=== PATIENT | female | born 1935 | race Caucasian/White ===

== ENCOUNTER 2017-01-04 11:13 | Emergency (ER) | payer MEDICARE, BC ==
[2017-01-04] MEDS ORDERED: SOLUMEDROL 125 MG/2 ML 125 MG/2 ML PDS IV ONE (11:17)
[2017-01-04] MEDS ORDERED: ALBUTEROL/IPRATROPIUM 1 VIAL SOL INH ONE ×2 (11:17→12:49)
[2017-01-04 11:21] VITALS: TEMP 97.2
[2017-01-04 11:33] LABS: BASOPHILS % (AUTO) 1 % (0-3); EOSINOPHILS % (AUTO) 2 % (0-9); HEMATOCRIT 43 % (35-47); MEAN CORPUSCULAR HGB CONC 35.1 gm/dl (32.0-36.0); MEAN CORPUSCULAR VOLUME 90 fL (81-99); MONOCYTES % (AUTO) 7.9 % (0-12); NEUTROPHILS % (AUTO) 66.9 % (37-80)
[2017-01-04] MEDS ORDERED: ALBUTEROL/IPRATROPIUM 1 VIAL SOL ONE ×2 (11:36→12:49)
[2017-01-04] MEDS ORDERED: METOPROLOL TARTRATE 5 MG/5 ML SOL IV ONE ×3 (11:36→13:32)
[2017-01-04] MEDS ORDERED: SOLUMEDROL 125 MG/2 ML 125 MG/2 ML PDS ONE (11:36)
[2017-01-04] MEDS ORDERED: SODIUM CHLORIDE 0.9% FLUSH 10 ML SOL IV PRN (11:48)
[2017-01-04 11:51] LABS: CALCIUM 9.2 mg/dl (8.5-10.1); GLOM FILT RATE 45 mL/min (>60); POTASSIUM 4.3 mMol/L (3.5-5.1); SODIUM 139 mMol/L (136-145)
[2017-01-04] MEDS ORDERED: FUROSEMIDE 20mg SOL IV ONE (12:03)
[2017-01-04] MEDS ORDERED: FUROSEMIDE 20mg SOL ONE (12:05)
[2017-01-04] MEDS ORDERED: MORPHINE SULFATE 10 MG/ML SOL IV ONE (12:19)
[2017-01-04] MEDS ORDERED: MORPHINE SULFATE 10 MG/ML SOL ONE (12:20)
[2017-01-04 14:07] VITALS: BP 174/92; PULSE 103; RESP 30; O2SAT 93
== END 2017-01-04 14:40 | disposition home or self-care (01) | DRG 189 ==
LOC: ED 11:13
DX: J81.0 Acute pulmonary edema (principal); J44.1 Chronic obstructive pulmonary disease with (acute) exacerbation
CPT/HCPCS: 36415; 71010; 80048; 83880; 84484; 85025; 85610; 99285; J1940; J2270; J2930; J7620

== ENCOUNTER 2017-02-02 20:40 | Inpatient (IN) | payer MEDICARE, BC ==
[2017-02-02] MEDS ORDERED: DILTIAZEM 5 MG/ML SOL IV ONE ×2 (20:51→20:56)
[2017-02-02] MEDS ORDERED: ALBUTEROL/IPRATROPIUM 1 VIAL SOL INH ONE (20:51)
[2017-02-02] MEDS ORDERED: SOLUMEDROL 125 MG/2 ML 125 MG/2 ML PDS IV ONE (20:52)
[2017-02-02] MEDS ORDERED: ALBUTEROL/IPRATROPIUM 1 VIAL SOL ONE (20:56)
[2017-02-02] MEDS ORDERED: SOLUMEDROL 125 MG/2 ML 125 MG/2 ML PDS ONE (20:56)
[2017-02-02 21:03] LABS: BASOPHILS % (AUTO) 1 % (0-3); EOSINOPHILS % (AUTO) 2 % (0-9); HEMATOCRIT 43 % (35-47); MEAN CORPUSCULAR HGB CONC 34.4 gm/dl (32.0-36.0); MEAN CORPUSCULAR VOLUME 89 fL (81-99); MONOCYTES % (AUTO) 9.3 % (0-12); NEUTROPHILS % (AUTO) 69.1 % (37-80)
[2017-02-02 21:13] LABS: CALCIUM 9.4 mg/dl (8.5-10.1); POTASSIUM 4.3 mMol/L (3.5-5.1)
[2017-02-02] MEDS ORDERED: METOPROLOL TARTRATE 50 MG TAB PO ONE (21:18)
[2017-02-02] MEDS ORDERED: METOPROLOL TARTRATE 25 MG TAB ONE (21:21)
[2017-02-02] MEDS ORDERED: LISINOPRIL 20 MG TAB ONE (22:05)
[2017-02-02] MEDS ORDERED: METOPROLOL TARTRATE 50 MG TAB ONE (22:05)
[2017-02-02] MEDS: LISINOPRIL 20 MG TAB PO SCH (22:15)
[2017-02-02] MEDS ORDERED: METOPROLOL TARTRATE 50 MG TAB PO SCH (22:15)
[2017-02-02] MEDS ORDERED: MAGNESIUM CITRATE SOL PO PRN (23:24)
[2017-02-02] MEDS ORDERED: ALBUTEROL HFA 60 PUFF/INHALER INH PRN (23:24)
[2017-02-02] MEDS ORDERED: ACETAMINOPHEN 500 MG 500 MG TAB PO PRN (23:24)
[2017-02-02] MEDS ORDERED: TRAMADOL HYDROCHLORIDE 50 MG TAB PO PRN (23:24)
[2017-02-03] MEDS: SODIUM CHLORIDE 0.9% FLUSH 10 ML SOL IV SCH ×2 (03:56→10:24)
[2017-02-03] MEDS: SOLUMEDROL 125 MG/2 ML 125 MG/2 ML PDS IV SCH ×2 (03:56→10:15)
[2017-02-03 07:18] LABS: BASOPHILS % (AUTO) 0 % (0-3); EOSINOPHILS % (AUTO) 0 % (0-9); HEMATOCRIT 40 % (35-47); MEAN CORPUSCULAR VOLUME 88 fL (81-99); NEUTROPHILS % (AUTO) 92.8 % (37-80)
[2017-02-03 07:43] LABS: CALCIUM 9.3 mg/dl (8.5-10.1); POTASSIUM 4.4 mMol/L (3.5-5.1)
[2017-02-03] MEDS ORDERED: ALBUTEROL/IPRATROPIUM 1 VIAL SOL NEB SCH (09:00)
[2017-02-03] MEDS ORDERED: MULTIVITAMIN2 1 EA TAB PO SCH (09:00)
[2017-02-03] MEDS ORDERED: FISH OIL 500 MG CAP PO SCH (09:00)
[2017-02-03] MEDS ORDERED: CHOLECALCIFEROL 1,000 IU TAB PO SCH (09:00)
[2017-02-03] MEDS ORDERED: Non-Formulary Medication MISC (Budesonide/Formoterol 160/4.5 2 PUFF) IH SCH (09:00)
[2017-02-03] MEDS ORDERED: BIOTIN PO SCH (09:00)
[2017-02-03] MEDS ORDERED: MULTIVITAMIN PO SCH (09:00)
[2017-02-03] MEDS ORDERED: WARFARIN SODIUM 4 MG TAB PO SCH (09:00)
[2017-02-03] MEDS ORDERED: BUDESONIDE/FORMOTEROL 160/4.5 AER INH SCH (09:45)
[2017-02-03] MEDS: LISINOPRIL 20 MG TAB PO SCH ×3 (10:05→12:35)
[2017-02-03 10:23] VITALS: PULSE 80; RESP 18; O2SAT 95
[2017-02-03 10:25] VITALS: BP 182/85; TEMP 97.1
[2017-02-03] MEDS ORDERED: VITAMIN D PO SCH (21:00)
[2017-02-03] MEDS ORDERED: CALCIUM CARBONATE 500 MG TAB PO SCH (21:00)
[2017-02-03] MEDS ORDERED: METOPROLOL SUCCINATE 50 MG ER TAB PO SCH (21:00)
== END 2017-02-03 10:41 | disposition short-term general hospital (02) | DRG 310 ==
LOC: ED 20:40 → ACUTE CARE 23:11
PROVIDERS: ADMIT Emergency Medicine; ATTEND Emergency Medicine
DX: I48.91 Unspecified atrial fibrillation (principal); R06.02 Shortness of breath; I48.2 Chronic atrial fibrillation; R07.9 Chest pain, unspecified; Z79.01 Long term (current) use of anticoagulants
CPT/HCPCS: 36415; 71010; 80048; 83880; 84484; 85025; 85610; 93005; 93012; 94150; 94762; 96374; 96375; 99221; 99285; J2930; J7620

== ENCOUNTER 2017-02-06 23:37 | Observation (INO) | payer MEDICARE, BC ==
[2017-02-06] MEDS ORDERED: ALBUTEROL/IPRATROPIUM 1 VIAL SOL INH ONE (23:48)
[2017-02-06] MEDS ORDERED: FUROSEMIDE 40 MG SOL IV ONE (23:49)
[2017-02-06] MEDS ORDERED: ALBUTEROL/IPRATROPIUM 1 VIAL SOL ONE (23:53)
[2017-02-06] MEDS ORDERED: LORAZEPAM 2 MG/ML SOL IV ONE (23:56)
[2017-02-06 23:59] LABS: BASOPHILS % (AUTO) 1 % (0-3); EOSINOPHILS % (AUTO) 1 % (0-9); HEMATOCRIT 44 % (35-47); MEAN CORPUSCULAR HGB CONC 32.8 gm/dl (32.0-36.0); MEAN CORPUSCULAR VOLUME 94 fL (81-99); MONOCYTES % (AUTO) 9.1 % (0-12); NEUTROPHILS % (AUTO) 78.7 % (37-80)
[2017-02-07] MEDS ORDERED: FUROSEMIDE 40 MG SOL ONE (00:05)
[2017-02-07] MEDS ORDERED: LORAZEPAM 2 MG/ML SOL ONE (00:06)
[2017-02-07] MEDS: SODIUM CHLORIDE 0.9% FLUSH 10 ML SOL IV PRN ×2 (00:14→08:29)
[2017-02-07 00:19] LABS: POTASSIUM 4.4 mMol/L (3.5-5.1)
[2017-02-07] MEDS ORDERED: ALBUTEROL/IPRATROPIUM 1 VIAL SOL ONE (00:54)
[2017-02-07] MEDS ORDERED: ALBUTEROL/IPRATROPIUM 1 VIAL SOL INH ONE (00:56)
[2017-02-07 01:19] LABS: APPEARANCE,URINE Clear; BILIRUBIN,URINE NEGATIVE (NEGATIVE); COLOR,URINE Yellow; GLUCOSE, URINE (UA) NEGATIVE (NEGATIVE); KETONES,URINE NEGATIVE (NEGATIVE); LEUKOCYTE ESTERASE ,URINE NEGATIVE (NEGATIVE); NITRATE,URINE NEGATIVE (NEGATIVE); OCCULT BLOOD,URINE TRACE INTACT (NEG-TRACE); PH,URINE 6.5; UROBILINOGEN,URINE 0.2 (0.2-1.0 EU)
[2017-02-07 01:29] LABS: RBC,URINE 0-1 (0-3AV/HPF); WBC,URINE 0-2 (0-5AV/HPF)
[2017-02-07] MEDS ORDERED: MAGNESIUM CITRATE SOL PO PRN (01:54)
[2017-02-07] MEDS ORDERED: ACETAMINOPHEN 500 MG 500 MG TAB PO PRN (01:54)
[2017-02-07] MEDS ORDERED: ALBUTEROL HFA 60 PUFF/INHALER INH PRN (01:54)
[2017-02-07] MEDS ORDERED: TRAMADOL HYDROCHLORIDE 50 MG TAB PO PRN (02:14)
[2017-02-07] MEDS: SODIUM CHLORIDE 0.9% FLUSH 10 ML SOL IV SCH ×2 (02:30→10:16)
[2017-02-07] MEDS: SOLUMEDROL 125 MG/2 ML 125 MG/2 ML PDS IV SCH ×3 (02:30→14:46)
[2017-02-07] MEDS: ALBUTEROL/IPRATROPIUM 1 VIAL SOL INH SCH ×4 (02:30→14:45)
[2017-02-07 07:26] LABS: BASOPHILS % (AUTO) 0 % (0-3); EOSINOPHILS % (AUTO) 0 % (0-9); HEMATOCRIT 43 % (35-47); MEAN CORPUSCULAR HGB CONC 33.1 gm/dl (32.0-36.0); MEAN CORPUSCULAR VOLUME 94 fL (81-99); MONOCYTES % (AUTO) 1.6 % (0-12); NEUTROPHILS % (AUTO) 93.3 % (37-80)
[2017-02-07 07:33] LABS: CALCIUM 9.2 mg/dl (8.5-10.1); POTASSIUM 4.5 mMol/L (3.5-5.1)
[2017-02-07 07:53] VITALS: BP 86/59; RESP 22; TEMP 97.2
[2017-02-07] MEDS ORDERED: ALBUTEROL/IPRATROPIUM 1 VIAL SOL NEB SCH (09:00)
[2017-02-07] MEDS ORDERED: WARFARIN SODIUM 4 MG TAB PO SCH (09:00)
[2017-02-07] MEDS ORDERED: TRAMADOL HYDROCHLORIDE 50 MG TAB PO SCH (09:00)
[2017-02-07] MEDS ORDERED: Non-Formulary Medication MISC (Budesonide/Formoterol 160/4.5 2 PUFF) IH SCH (09:00)
[2017-02-07] MEDS ORDERED: CARVEDILOL 12.5 MG TAB PO SCH (09:00)
[2017-02-07 11:30] VITALS: PULSE 100; O2SAT 94
[2017-02-07] MEDS ORDERED: ATORVASTATIN CALCIUM 80 MG TAB PO SCH (21:00)
[2017-02-07] MEDS ORDERED: CALCIUM CARBONATE 500 MG TAB PO SCH (21:00)
[2017-02-07] MEDS ORDERED: CHOLECALCIFEROL 1,000 IU TAB PO SCH (21:00)
[2017-02-08] MEDS ORDERED: FISH OIL 500 MG CAP PO SCH (09:00)
[2017-02-08] MEDS ORDERED: BIOTIN PO SCH (09:00)
[2017-02-08] MEDS ORDERED: MULTIVITAMIN2 1 EA TAB PO SCH (09:00)
== END 2017-02-07 14:40 | disposition home or self-care (01) | DRG 190 ==
LOC: ED 23:37 → ACUTE CARE 02-07 01:15
PROVIDERS: ADMIT Family Medicine; ATTEND Family Medicine
DX: J44.1 Chronic obstructive pulmonary disease with (acute) exacerbation (principal); J81.0 Acute pulmonary edema; I48.2 Chronic atrial fibrillation; R79.89 Other specified abnormal findings of blood chemistry; Z79.01 Long term (current) use of anticoagulants
CPT/HCPCS: 36415; 71010; 80048; 81001; 83880; 84484; 85025; 85610; 93005; 93012; 94640; 94762; 96374; 96375; 99217; 99285; 99291; J1940; J2060; J2930; J7620

== ENCOUNTER 2017-03-05 22:40 | Emergency (ER) | payer MEDICARE, BC ==
[2017-03-05] MEDS ORDERED: ALBUTEROL/IPRATROPIUM 1 VIAL SOL INH PRN (22:49)
[2017-03-05] MEDS ORDERED: ALBUTEROL/IPRATROPIUM 1 VIAL SOL ONE (23:00)
[2017-03-05 23:16] VITALS: TEMP 96.7
[2017-03-05 23:26] LABS: ABG PH 7.39 (7.35-7.45)
[2017-03-05 23:42] LABS: ALT 30 IU/L (14-63); GLOM FILT RATE 42 mL/min (>60); SODIUM 142 mMol/L (136-145)
[2017-03-05 23:43] VITALS: BP 110/74
[2017-03-05 23:49] LABS: BASOPHILS % (AUTO) 1 % (0-3); EOSINOPHILS % (AUTO) 4 % (0-9); HEMATOCRIT 40 % (35-47); MEAN CORPUSCULAR HGB CONC 33.6 gm/dl (32.0-36.0); MEAN CORPUSCULAR VOLUME 92 fL (81-99); MONOCYTES % (AUTO) 10.9 % (0-12); NEUTROPHILS % (AUTO) 72.6 % (37-80)
[2017-03-06] VITALS: PULSE 99; RESP 36; O2SAT 99
== END 2017-03-06 01:28 | disposition home or self-care (01) | DRG 192 ==
LOC: ED 22:40
DX: J44.1 Chronic obstructive pulmonary disease with (acute) exacerbation (principal); R09.02 Hypoxemia; Z79.01 Long term (current) use of anticoagulants
CPT/HCPCS: 36600; 71010; 80053; 82803; 83735; 84100; 84484; 85025; 85610; 93005; 99284; J7620

== ENCOUNTER 2017-04-27 11:11 | Emergency (ER) | payer MEDICARE, BC ==
[2017-04-27] MEDS ORDERED: PROCHLORPERAZINE EDISYLATE 5 MG/ML SOL IV ONE (11:50)
[2017-04-27 11:58] LABS: BASOPHILS % (AUTO) 1 % (0-3); EOSINOPHILS % (AUTO) 3 % (0-9); HEMATOCRIT 41 % (35-47); MEAN CORPUSCULAR HGB CONC 33.8 gm/dl (32.0-36.0); MEAN CORPUSCULAR VOLUME 89 fL (81-99); MONOCYTES % (AUTO) 7.3 % (0-12); NEUTROPHILS % (AUTO) 73.2 % (37-80)
[2017-04-27] MEDS ORDERED: PROCHLORPERAZINE EDISYLATE 5 MG/ML SOL ONE (12:06)
[2017-04-27] MEDS ORDERED: ACETAMINOPHEN 500 MG 500 MG TAB PO ONE (12:07)
[2017-04-27] MEDS ORDERED: ACETAMINOPHEN 500 MG 500 MG TAB ONE (12:07)
[2017-04-27 12:10] LABS: ALBUMIN 3.3 gm/dl (3.4-5.0); ALT 24 IU/L (14-63); CALCIUM 8.6 mg/dl (8.5-10.1); GLOM FILT RATE 49 mL/min (>60); POTASSIUM 4.2 mMol/L (3.5-5.1); SODIUM 140 mMol/L (136-145)
[2017-04-27] MEDS: SODIUM CHLORIDE 0.9% FLUSH 10 ML SOL IV PRN ×2 (12:10→12:52)
[2017-04-27 12:27] VITALS: TEMP 97.1
[2017-04-27] MEDS ORDERED: LABETALOL HYDROCHLORIDE 5 MG/ML SOL IV ONE ×2 (12:32)
[2017-04-27] MEDS ORDERED: PROTHROMBIN COMPLEX HUMAN IV ONE ×2 (12:44→12:45)
[2017-04-27] MEDS ORDERED: SODIUM CHLORIDE 0.9% 1000ML 1,000 ML IV SCH (12:45)
[2017-04-27] MEDS ORDERED: HYDROMORPHONE 1 MG/ML SYRINGE IV PRN (12:53)
[2017-04-27] MEDS ORDERED: PROTHROMBIN COMPLEX HUMAN 500 IU PDS IV ONE (12:53)
[2017-04-27 14:38] VITALS: O2SAT 98
[2017-04-27 14:39] VITALS: BP 171/86; PULSE 99; RESP 25
== END 2017-04-27 13:30 | disposition short-term general hospital (02) | DRG 66 ==
LOC: ED 11:11
DX: I61.4 Nontraumatic intracerebral hemorrhage in cerebellum (principal); I48.91 Unspecified atrial fibrillation; Z79.01 Long term (current) use of anticoagulants; R11.2 Nausea with vomiting, unspecified
CPT/HCPCS: 36415; 70450; 80053; 84484; 85025; 85610; 87804; 93005; 99291; C9132; J0780; J3490